=== PATIENT | male | born 1935 | race Caucasian/White ===

== ENCOUNTER → 2018-01-12 | Day surgery (SDC) | payer MEDICARE, BC ==
[~2018-01-12] MED LIST: ALLOPURINOL 10100 M1 PO; AMARYL2 MG PO; ASPIR 8181 MG PO; ATROVENT HFA14 GM INH; CARVEDILOL3.125 MG PO; CROMOLYN SODIUM10 ML TOP; DEMADEX20 MG PO; ELIQUIS5 MG PO; FLOMAX0.4 MG PO; FLONASE SENSIM5.9 ML INH; LANTUS SUBQ; LIPITOR10 MG PO; MUCINEX600 MG PO; OYSTER SHELL 51 EACH PO; PACERONE 200 M200 M1 PO; PROAIR HFA8.5 GM INH; PROSCAR 5MG TABL5 MG PO; PROTONIX40 M1 PO; RANEXA500 MG PO; SINGULAIR 10 MG10 M1 PO; SYMBICORT160 MCG/4. INH; TRAZODONE HCL50 MG PO; XALATAN2.5 ML OPHTHALMIC
--- NOTE | ~2018-01-12 | PROC ---
[address] [address] PROCEDURE REPORT Name: AUSTIN LEE Room: [facility]#: [id number] Admission: 01/12/18 Attend Phys: Michele Herrera MD Discharge: Date of : 35 Report #: [id number] THIS REPORT FOR: //name// For GI report, please see the Provation report in Perceptive 7 content. By: 0634Medical Records Staff JOANIE /ROSARIO
[2018-01-12 09:57] LABS: HEMATOCRIT 36.1 % (42.0-52.0); HEMOGLOBIN 11.6 gm/dL (14.0-18.0); MCH 27.9 pg (26.0-34.0); MCV 87.2 fL (80.0-100.0); MPV 7.3 fl. (7.2-11.1); RBC 4.14 mil/uL (4.50-6.00); RDW-CV 27.8 % (10.5-14.5); WBC 7.7 thou/uL (4.0-11.0)
[2018-01-12 10:20] LABS: CREATININE 1.1 mg/dL (0.6-1.3); POTASSIUM 3.8 mmol/L (3.5-5.1)
[2018-01-12 10:25] LABS: TOTAL BILIRUBIN 0.7 mg/dL (<0.1-1.0); TOTAL PROTEIN 6.5 g/dL (6.4-8.2)
--- NOTE | 2018-01-12 16:38 | EKG ---
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: [facility] : 1935 Requested By: Michele Herrera Order Number: [id number] Reading MD: Melvin Caballero Measurements Intervals [place] Rate: 65 P: 13 CT: 239 QRS: -18 QRSD: 107 T: 112 QT: 433 QTc: 451 Interpretive Statements Sinus rhythm Prolonged CT interval Inferior infarct, old Lateral leads are also involved No previous ECG available for comparison Electronically Signed On 01-12-2018 16:38:35 [employer] SALES REPRESENTATIVE by Melvin Caballero [email or web address] <ELECTRONICALLY SIGNED> By: Melvin Caballero MD, [facility] 01/12/18 1638 1020 1020 Melvin Caballero MD, FACC /EPI
--- NOTE | 2018-01-13 16:10 | PATH ---
[address] [address] PATHOLOGY RPT PROCEDURE Name: ALBERTO ZIMMERMAN Room: [facility]#: [id number] Admission: 01/12/18 Date of : 35 Discharge: Report #: [id number] Path Case #: [id number] [facility] Accession Number: [id number] . 01 Material submitted: . DUODENAL BIOPSY, R/O CELIAC . 01 Clinical history: . History of peptic ulcer, anemia . 02 Diagnosis: Duodenal biopsies: - Normal duodenal/small intestinal mucosa. (BRENNEN/db; 01/13/2018) LBQ/01/13/2018 . 02 Electronically signed: . Royal Mendez MD, Pathologist NPI- [id number] . 01 Gross description: . Received in formalin labeled "Alberto Zimmerman, duodenal biopsies, rule out celiac," are 4 segments of landin soft tissue measuring 1.3 x 0.9 x 0.3 cm in aggregate dimensions and ranging from 0.2 to 0.3 cm in maximum dimension. The specimen is submitted entirely in cassette A1. (TSD; 01/12/2018) TOB/TOB . 02 Microscopic: . Y . 02 Pathologist provided ICD-10: D64.9, Z87.19 . 02 CPT . 632035 Specimen Comment: A courtesy copy of this report has been sent to Specimen Comment: [phone], . Specimen Comment: Report sent to / DR CRANE Specimen Comment: A duplicate report has been generated due to demographic updates. Performed at: [address] [id number] MD Nic Taylor MD Phone: [phone] Performed at: [address], [place], [place] [id number] [place] [address] PATHOLOGY RPT PROCEDURE Name: ALBERTO ZIMMERMAN Room: [facility].#: [id number] Admission: 01/12/18 Date of : 35 Discharge: Report #: [id number] Path Case #: [id number] MD Royal Mendez MD Phone: [phone]
== END | disposition home or self-care (01) ==
LOC: M.SUR 06:55
PROVIDERS: Internal Medicine Gastroenterology
DX: D50.9 Iron deficiency anemia, unspecified (principal); I12.9 Hypertensive chronic kidney disease with stage 1 through stage 4 chronic kidney disease, or unspecified chronic kidney disease; E11.22 Type 2 diabetes mellitus with diabetic chronic kidney disease; N18.9 Chronic kidney disease, unspecified; I42.9 Cardiomyopathy, unspecified; I25.10 Atherosclerotic heart disease of native coronary artery without angina pectoris; K21.9 Gastro-esophageal reflux disease without esophagitis; J44.9 Chronic obstructive pulmonary disease, unspecified; G47.33 Obstructive sleep apnea (adult) (pediatric); Z79.01 Long term (current) use of anticoagulants; Z95.5 Presence of coronary angioplasty implant and graft; Z95.0 Presence of cardiac pacemaker; Z87.891 Personal history of nicotine dependence; Z88.0 Allergy status to penicillin; Z90.49 Acquired absence of other specified parts of digestive tract; Z79.899 Other long term (current) drug therapy; Z98.41 Cataract extraction status, right eye; Z98.42 Cataract extraction status, left eye; Z87.19 Personal history of other diseases of the digestive system